=== PATIENT | female | born 2000 | race Caucasian/White ===

== ENCOUNTER 2024-08-03 09:59 | Emergency (ER) | payer SELFPAY ==
[2024-08-03] MEDS: NS (Normal Saline) 0.9% 1,000 ML IV ONE ×2 (10:37→11:47)
[2024-08-03 10:39] LABS: BASO % 0.2 % (0.0-1.0); EOS % 0.2 % (0.0-3.0); HEMOGLOBIN 13.7 g/dl (12.0-15.5); LYMPH # 2.4 10^3/uL (1.5-5.0); LYMPH % 23.5 % (24.0-44.0); MEAN CORPUSCULAR HEMOGLOBIN 27.8 pg (27.0-33.0); MEAN CORPUSCULAR HGB CONC 33.4 g/dl (32.0-36.5); MEAN CORPUSCULAR VOLUME 83.2 fl (80.0-96.0); MONO # 0.7 10^3/uL (0.0-0.8); MONO % 6.8 % (2.0-8.0); PLATELET COUNT, AUTOMATED 202 10^3/uL (150-450); RED BLOOD COUNT 4.93 10^6/uL (4.00-5.40); WHITE BLOOD COUNT 10.2 10^3/uL (4.0-10.0)
[2024-08-03 11:03] LABS: CK-MB VALUE MASS < 1.0 NG/ML (<3.6); LIPASE 22 U/L (12-53)
[2024-08-03 11:04] LABS: AMYLASE 46 U/L (30-118); HCG, SERUM QUALITATIVE NEGATIVE (NEGATIVE)
[2024-08-03 11:05] LABS: ALBUMIN 4.6 G/DL (3.2-5.2); ALKALINE PHOSPHATASE 75 U/L (35-104); ALT/SGPT 11 U/L (7.0-40); AST/SGOT < 8 U/L (<34); BILIRUBIN,DIRECT 0.6 MG/DL (<0.4); BILIRUBIN,TOTAL 1.9 MG/DL (0.3-1.2); BLOOD UREA NITROGEN 8 MG/DL (9-23); CALCIUM LEVEL 9.5 MG/DL (8.5-10.1); CARBON DIOXIDE LEVEL 21 MMOL/L (20-31); CHLORIDE LEVEL 105 MMOL/L (98-107); CPK CREATINE PHOSPHOKINASE 54 U/L (34-145); CREATININE FOR GFR 0.48 MG/DL (0.55-1.30); GLOMERULAR FILTRATION RATE > 90.0 (>60); GLUCOSE, FASTING 95 MG/DL (60-100); MB/CK RELATIVE INDEX 1.85 (< OR =4); POTASSIUM SERUM 3.6 MMOL/L (3.5-5.1); SODIUM LEVEL 141 MMOL/L (136-145); TOTAL PROTEIN 7.6 G/DL (5.7-8.2)
[2024-08-03 11:24] LABS: KETONE, URINE AUTO RFX 1+ mg/dL (NEGATIVE); LEUKOCYTE ESTERASE UR AUTO RFX NEGATIVE (NEGATIVE); MUCUS, URINE RFX SMALL (NEGATIVE); NITRITE, URINE AUTO RFX NEGATIVE (NEGATIVE); RBC, URINE AUTO RFX 1 /HPF (0-3); SQUAM EPITHELIAL CELL UR AURFX 2 /HPF (0-6); WBC, URINE AUTO RFX 0 /HPF (0-3)
[2024-08-03] MEDS ORDERED: ISOVUE-370 76% 100ML VIAL As Ordered ONE (11:29)
[2024-08-03 13:49] LABS: CK-MB VALUE MASS < 1.0 NG/ML (<3.6)
[2024-08-03 13:51] LABS: CPK CREATINE PHOSPHOKINASE 46 U/L (34-145); MB/CK RELATIVE INDEX 2.17 (< OR =4)
[2024-08-03 15:00] VITALS: BP 89/51; TEMP 98.3; O2SAT 98
== END 2024-08-03 15:00 | disposition home or self-care (01) ==
LOC: M ED 09:59
DX: R07.9 Chest pain, unspecified (principal); R10.9 Unspecified abdominal pain; B34.9 Viral infection, unspecified; E86.0 Dehydration; N83.202 Unspecified ovarian cyst, left side
CPT/HCPCS: 71045; 74177; 76705; 80047; 80048; 80076; 81001; 82150; 82550; 82553; 83605; 83690; 84484; 84703; 85025; 87040; 87486; 87581; 87633; 87798; 93005; 93041; 96360; 96361; 99285; Q9967